=== PATIENT | male | born 1940 | race Caucasian/White ===

== ENCOUNTER 2016-12-18 00:17 | Inpatient (IN) ==
[2016-12-18] MEDS ORDERED: 0.9 % Sodium Chloride 1,000 ML IVC ONE (00:21)
[2016-12-18] MEDS ORDERED: Ondansetron 4 MG/2 ML VIAL IVP ONE (00:21)
[2016-12-18] MEDS ORDERED: *HR* FentaNYL (PF) 100 MCG/2 ML VIAL IVP ONE (00:38)
--- NOTE | 2016-12-18 00:40 | Emergency Department Note ---
Disposition Clinical Impression: Abdominal pain Qualifiers: Abdominal location: generalized Qualified Code(s): R10.84 - Generalized abdominal pain Sepsis Qualifiers: Sepsis type: sepsis due to unspecified organism Qualified Code(s): A41.9 - Sepsis, unspecified organism Disposition: Admitted As Inpatient Condition: Undetermined Time of Disposition: 03:01 Abdominal Pain HPI - General Chief Complaint: ED Abdominal Pain Stated Complaint: nausa/abd pain Time Seen by Provider: 12/18/16 00:20 Source: patient, EMS Mode of arrival: EMS Limitations: no limitations Nursing Notes Reviewed: Yes Vital Signs Reviewed: Yes - History of Present Illness HPI Narrative: 76-year-old male with history of colostomy, ileostomy, PEG tube arrives [facility] emergency department with severe abdominal pain worsening over the course of the past 4 days as well as vomiting what appears to be feculent material according to . The patient states that he does have a history of atrial fibrillation but has not been taking his Xarelto. 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 The patient's surgeon refused to place a stoma due to the fact that the patient is so cachectic. The patient states that he is in a large amount of abdominal pain at this time. Pt Subjective Complaint: abdominal pain Onset (ago): day(s) (4) Consistency: constant, Worsening Pain Severity: severe Pain Scale: 10 Quality: stabbing Radiation: none Migration to: no migration Improves with: nothing Worsens with: nothing Associated symptoms: Reports: nausea, vomiting Treatments prior to arrival: none - Related Data Home Medications Medication Instructions Recorded Confirmed ALPRAZolam [Xanax 0.25 MG Tablet] 0.25 mg GTUBE BID 06/05/16 06/11/16 Albuterol Neb [AccuNeb] 1.25 mg IH Q4H PRN 06/05/16 06/11/16 Amoxicillin/Clavulanate [Augmentin] 875 mg GTUBE BID 06/05/16 06/11/16 Atorvastatin [Lipitor] 40 mg GTUBE HS 06/05/16 06/11/16 Fentanyl [Duragesic] 25 mcg TD Q72H 06/05/16 06/11/16 Fluticasone/Salmeterol [Advair 1 each IH BID 06/05/16 06/11/16 250-50 Diskus] Guaifenesin [Mucinex] 400 mg GTUBE TID 06/05/16 06/11/16 Ipratropium/Albuterol Neb [Duoneb] 3 ml IH Q6HR 06/05/16 06/11/16 Lactose-Reduced Food/Fiber [Jevity 65 ml GTUBE CONT MDD for 16 hours 06/05/16 1.5 Gil Liquid] daily Metoprolol [Lopressor] 25 mg GTUBE DAILY 06/05/16 06/11/16 Oxycodone HCl [OxyCODONE Oral Soln] 5 mg GTUBE Q6H PRN 06/05/16 06/11/16 Oxycodone HCl [Oxycontin] 10 mg GTUBE Q6H 06/05/16 06/11/16 Allergies Allergy/AdvReac Type Severity Reaction Status Date / Time No Known Allergies Allergy Verified 06/05/16 03:46 All systems ED: reviewed and negative except as stated. Constitutional: Reports: weakness. Denies: fever, chills, weight change Cardiovascular: Denies: chest pain, palpitations, dyspnea on exertion, edema, syncope Respiratory: Denies: cough, dyspnea, wheezes, hemoptysis, stridor Gastrointestinal: Reports: abdominal pain, nausea, vomiting, constipation. Denies: diarrhea, hematemesis, melena, hematochezia Musculoskeletal: Denies: back pain, neck pain, arthralgia, myalgia Neurological: Denies: headache, weakness, numbness, paresthesias, confusion, abnormal gait, vertigo Abdominal Pain PMH - Past Medical History Medical history: Reports: arthritis, atrial fibrillation, cancer, CHF, COPD, coronary artery disease, GERD, hyperlipidemia, hypertension, myocardial infarction, other Male Surgical History: Reports: colostomy, other (Ileostomy, PEG tube) Psychiatric history: Reports: anxiety - Social History Smoking status: Current every day smoker Alcohol use: Reports: none Drug use: Reports: none Physical Exam - General Limitations: no limitations General appearance: alert, in distress (Due to pain), cachectic - Head Head exam: atraumatic, normocephalic, normal inspection - Neck Neck exam: Present: normal inspection, full ROM, trachea midline - Chest Chest inspection: Present: normal inspection, symmetric chest wall rise - Respiratory Respiratory exam: Present: normal lung sounds bilaterally - Cardiovascular Cardiovascular exam: Present: regular rate, normal rhythm, normal heart sounds - Abdominal Exam Abdominal exam: Present: soft, tenderness (Diffuse), other (Ileostomy and colostomy with an ileal conduit for urine. PEG tube in place, chronic skin changes associated with radiation therapy. Irritation and mild erythema of PEG tube.). Absent: distention, guarding, rebound, rigidity, Bucio's sign, Rovsing 's sign - Extremities Exam Extremities exam: Present: normal inspection, full ROM. Absent: tenderness, pedal edema Course Vital Signs Temperature 98.5 F 12/18/16 00:21 Pulse Rate 90 12/18/16 00:21 Respiratory Rate 18 12/18/16 00:21 Blood Pressure 99/66 12/18/16 00:21 O2 Sat by Pulse Oximetry 93 12/18/16 00:21 Temperature 98.5 F 12/18/16 00:21 Pulse Rate 109 12/18/16 01:28 Respiratory Rate 18 12/18/16 00:21 Blood Pressure 111/58 12/18/16 01:28 O2 Sat by Pulse Oximetry 93 12/18/16 01:28 Oxygen Delivery Oxygen Delivery Room Air Abdominal Pain - MDM Narrative Medical decision making narrative: Patient's abdominal CT demonstrates no acute findings. The patient has a leukocytosis as well as an elevated lactic acid. He was administered IV fluids as well as IV antibiotics. The patient is resting comfortably at this time. Given the patient's lab work findings in his abdominal pain we will admit the patient to the hospitalist for further care. We will admit the patient to the hospitalist, accepted by Dr. Montano. - Lab Data Lab results reviewed: Yes I reviewed the patient's lab results. Result diagrams: 12/18/16 00:58 12/18/16 00:58 Lab Results 12/18/16 12/18/16 12/18/16 Range/Units 00:58 00:58 00:58 WBC 24.2 H (4.3-11.1) K/mcL RBC 3.38 L (4.19-5.50) M/mcL Hgb 10.9 L (12.9-16.9) g/dL Hct 32.5 L (37.5-50.1) % MCV 96.2 (83.0-100.0) fL MCH 32.2 (28.0-33.3) pg MCHC 33.5 (31.6-35.5) g/dL RDW 14.0 (11.5-14.5) % Plt Count 350 (140-400) K/mcL MPV 12.0 (9.4-12.4) fL Immature Gran % 1.0 (0-4) % Seg Neutrophils % 87.7 % Lymphocytes % 3.9 % Monocytes % 7.2 % Eosinophils % 0.0 % Basophils % 0.2 % Neutrophils # 21.2 H (1.6-8.9) K/mcL Lymphocytes # 0.9 (0.6-4.6) K/mcL Monocytes # 1.7 H (0.0-1.3) K/mcL Eosinophils # 0.0 (0.0-0.6) K/mcL Basophils # 0.1 (0.0-0.2) K/mcL Platelet Estimate Normal (Normal) Hypochromasia Present A (Not Present) Sodium 134 L (136-145) mEq/L Potassium 4.5 (3.5-4.5) mEq/L Chloride 90 L (98-109) mEq/L Carbon Dioxide 29 (19-29) mEq/L BUN 158 H (8-26) mg/dL Creatinine 2.22 H (0.72-1.25) mg/dL Est GFR ( Amer) 35 L (> 60) Est GFR (Non-Af Amer) 29 L (> 60) BUN/Creatinine Ratio 71 H (6-26) Glucose 121 H (70-99) mg/dL Calculated Osmolality 331 H (280-300) Lactic Acid 2.9 H (0.5-2.2) mmol/L Calcium 10.1 (8.6-10.8) mg/dL Total Bilirubin 0.2 (0.2-1.2) mg/dL AST 19 (5-34) Units/L ALT 18 (0-55) Units/L Alkaline Phosphatase 98 (38-126) Units/L Serum Total Protein 7.8 (6.0-8.3) g/dL Albumin 3.5 (3.5-5.0) g/dL Globulin 4.3 H (2.4-3.5) g/dL Albumin/Globulin Ratio 0.8 L (1.1-2.2) Urine Color (Yellow) Urine Clarity (Clear) Urine pH (5.0-8.0) pH Units Ur Specific Keiser (1.010-1.025) Urine Protein (Neg-Trace) mg/dL Urine Glucose (UA) (Normal) mg/dL Urine Ketones (Negative) mg/dL Urine Blood (Negative) Urine Nitrite (Negative) Urine Bilirubin (Negative) Urine Urobilinogen (Normal) mg/dL Ur Leukocyte Esterase (Negative) Urine Microscopic RBC (0-3) per hpf Urine Microscopic WBC (0-3) per hpf Ur Squamous Epith Cells (None-Few) per lpf Urine Bacteria (None-Few) per hpf Hyaline Casts (None-Few) per lpf Ur Culture Indicated? (NO) 12/18/16 Range/Units 01:28 WBC (4.3-11.1) K/mcL RBC (4.19-5.50) M/mcL Hgb (12.9-16.9) g/dL Hct (37.5-50.1) % MCV (83.0-100.0) fL MCH (28.0-33.3) pg MCHC (31.6-35.5) g/dL RDW (11.5-14.5) % Plt Count (140-400) K/mcL MPV (9.4-12.4) fL Immature Gran % (0-4) % Seg Neutrophils % % Lymphocytes % % Monocytes % % Eosinophils % % Basophils % % Neutrophils # (1.6-8.9) K/mcL Lymphocytes # (0.6-4.6) K/mcL Monocytes # (0.0-1.3) K/mcL Eosinophils # (0.0-0.6) K/mcL Basophils # (0.0-0.2) K/mcL Platelet Estimate (Normal) Hypochromasia (Not Present) Sodium (136-145) mEq/L Potassium (3.5-4.5) mEq/L Chloride (98-109) mEq/L Carbon Dioxide (19-29) mEq/L BUN (8-26) mg/dL Creatinine (0.72-1.25) mg/dL Est GFR ( Amer) (> 60) Est GFR (Non-Af Amer) (> 60) BUN/Creatinine Ratio (6-26) Glucose (70-99) mg/dL Calculated Osmolality (280-300) Lactic Acid (0.5-2.2) mmol/L Calcium (8.6-10.8) mg/dL Total Bilirubin (0.2-1.2) mg/dL AST (5-34) Units/L ALT (0-55) Units/L Alkaline Phosphatase (38-126) Units/L Serum Total Protein (6.0-8.3) g/dL Albumin (3.5-5.0) g/dL Globulin (2.4-3.5) g/dL Albumin/Globulin Ratio (1.1-2.2) Urine Color Yellow (Yellow) Urine Clarity Cloudy A (Clear) Urine pH 6.5 (5.0-8.0) pH Units Ur Specific Keiser 1.016 (1.010-1.025) Urine Protein Negative (Neg-Trace) mg/dL Urine Glucose (UA) Normal (Normal) mg/dL Urine Ketones Negative (Negative) mg/dL Urine Blood Large H (Negative) Urine Nitrite Negative (Negative) Urine Bilirubin Negative (Negative) Urine Urobilinogen Normal (Normal) mg/dL Ur Leukocyte Esterase Moderate H (Negative) Urine Microscopic RBC 15-30 H (0-3) per hpf Urine Microscopic WBC 5-15 H (0-3) per hpf Ur Squamous Epith Cells Many H (None-Few) per lpf Urine Bacteria Few (None-Few) per hpf Hyaline Casts None Seen (None-Few) per lpf Ur Culture Indicated? YES A (NO) - Radiology Data Radiology results reviewed: Yes I reviewed the patient's radiology results. - EKG Data EKG attestation: Yes I reviewed and interpreted this EKG. EKG results narrative: Heart rate 93 bpm. WV interval 180 ms. QTC 44 ms. Left axis deviation. Normal sinus rhythm with no ST elevation or ST depression noted. Right bundle branch noted. Critical Care Time Critical Care Time: Yes Total Critical Care Time: 35 Attestation: Critical care performed: Time is exclusive of separately billable procedures. Time includes: direct patient care, patient reassessment, coordination of patient care, interpretation of data (laboratory data, radiology data, and respiratory data), review of patient's medical records, medical consultation and documentation of patient care. Procedures included in critical care time: Procedures excluded from critical care time: Attestation Statement - Attestation Attestation: I, Antonio Sanchez MD, personally evaluated this patient and discussed their management with the resident physician. I reviewed the resident's note and agree with the documented findings, medical decision making, and plan of care. 76-year-old male presents to the emergency department with a complaint of increasing abdominal pain with nausea and vomiting over the past several days. No fever. Decreased drainage from colostomy bag. reported the emesis and smelled like stool. Abdominal pain is generalized. Patient has an ileal conduit. On examination patient is a well-developed thin elderly male in no acute distress but does appear to be in moderate discomfort. He is alert and oriented 3. There is no cyanosis or diaphoresis. Is nontender to palpation. Breath sounds are equal bilaterally with some scattered bilateral rhonchi. Heart regular rate and rhythm. Abdomen soft with decreased bowel sounds. Mild diffuse tenderness. No tympany or distention. Chest x-ray negative. CT of the abdomen and pelvis showed no acute abnormality. Labs reviewed. WBC 24.2 with 87% segs. Creatinine 2.22. The hospitalist, Dr. Montano, was consulted and accepted admission of the patient.
[2016-12-18 01:06] LABS: Basophils # 0.1 K/mcL (0.0-0.2); Basophils % 0.2 %; Hematocrit 32.5 % (37.5-50.1); Hemoglobin 10.9 g/dL (12.9-16.9); Lymphocytes % 3.9 %; Mean Corpuscular HGB Conc 33.5 g/dL (31.6-35.5); Mean Corpuscular Hemoglobin 32.2 pg (28.0-33.3); Mean Corpuscular Volume 96.2 fL (83.0-100.0); Monocytes # 1.7 K/mcL (0.0-1.3); Monocytes % 7.2 %; Neutrophils # 21.2 K/mcL (1.6-8.9); Platelet Count 350 K/mcL (140-400); Red Blood Count 3.38 M/mcL (4.19-5.50); Segmented Neutrophils % 87.7 %
[2016-12-18 01:07] LABS: Lymphocytes # 0.9 K/mcL (0.6-4.6)
[2016-12-18 01:27] LABS: Hypochromasia Present (Not Present); Platelet Estimate Normal (Normal); Potassium 4.5 mEq/L (3.5-4.5)
[2016-12-18 01:28] LABS: Albumin 3.5 g/dL (3.5-5.0); Albumin/Globulin Ratio 0.8 (1.1-2.2); Bilirubin,Total 0.2 mg/dL (0.2-1.2); Calcium 10.1 mg/dL (8.6-10.8); Globulin 4.3 g/dL (2.4-3.5); Total Protein 7.8 g/dL (6.0-8.3)
[2016-12-18 01:34] LABS: Bilirubin,Urine Negative (Negative); Blood,Urine Large (Negative); Clarity,Urine Cloudy (Clear); Color,Urine Yellow (Yellow); Glucose,Urine (UA) Normal (Normal); Ketones,Urine Negative (Negative); Leukocyte Esterase,Urine Moderate (Negative); Nitrite,Urine Negative (Negative); PH,Urine 6.5 pH Units (5.0-8.0); Protein,Urine Negative (Neg-Trace); Specific Gravity,Urine 1.016 (1.010-1.025); Urobilinogen,Urine Normal (Normal)
[2016-12-18 01:36] LABS: Bacteria,Urine Few per hpf (None-Few); Hyaline Casts,Urine None Seen per lpf (None-Few); RBC,Urine 15-30 per hpf (0-3); Squamous Epithelial Cell,Urine Many per lpf (None-Few)
[2016-12-18] MEDS ORDERED: Piperacillin/Tazobactam 3.375 GM in D5% in Water (Mini-Bag+) 100 ML IVPB ONE (02:03)
[2016-12-18] MEDS ORDERED: Vancomycin 1,000 MG in D5% in Water 250 ML IVPB ONE (02:03)
[2016-12-18] MEDS ORDERED: *HR* OxyCODONE Oral Soln 5 MG/5 ML UD.LIQ GTUBE PRN (04:07)
[2016-12-18] MEDS ORDERED: Acetaminophen 325 MG TABLET PO PRN (04:15)
[2016-12-18] MEDS ORDERED: 0.9 % Sodium Chloride 1,000 ML IVC SCH (04:15)
[2016-12-18] MEDS ORDERED: Naloxone 0.4 MG/ML INJ IVP PRN (04:15)
[2016-12-18 04:34] LABS: Magnesium 2.1 mg/dL (1.6-2.6)
[2016-12-18 04:36] LABS: INR 1.9; Prothrombin Time 20.7 Seconds (9.4-12.1)
[2016-12-18] MEDS: *HR* Morphine 2 MG/ML SYRINGE IVP PRN ×3 (04:47→16:35)
[2016-12-18] MEDS: Ipratropium/Albuterol Neb 3 ML IH SCH ×4 (04:56→16:00)
--- NOTE | 2016-12-18 04:57 | Internal Med History&Physical ---
Date of Encounter: 12/18/16 Time of Encounter: 04:30 Assessment and Plan (1) Sepsis Current visit: No Status: Acute Sepsis present on admission - likely secondary to UTI and possible infection at PEG tube site with Acute Kidney Injury Patient also has severe skin excoriation around the colostomy and ileostomy sites Continue IV fluids, empiric IV Zosyn, IV Vancomycin WBC - 24.2 Lactic acid - 2.9 Cultures - pending Chest x-ray - negative CT abdomen and pelvis - no acute findings, no obstruction UA - moderate leukocyte esterase Wound care consult Cardiac telemetry, repeat labs in a.m., monitor closely Qualifiers: Sepsis type: sepsis due to unspecified organism Qualified Code(s): A41.9 - Sepsis, unspecified organism (2) UTI (urinary tract infection) Current visit: No Status: Acute Plan as above Qualifiers: Urinary tract infection type: site unspecified Hematuria presence: without hematuria Qualified Code(s): N39.0 - Urinary tract infection, site not specified (3) Acute kidney injury Current visit: No Status: Acute Acute kidney injury likely secondary to sepsis and volume depletion Continue IV fluids, labs in a.m. Nephrology consult if renal function worsens (4) Abdominal pain Current visit: Yes Status: Acute Acute abdominal pain with nausea and vomiting - unclear etiology, possibly due to skin excoriation and retracted colostomy IV Morphine as needed for pain CT abdomen - no acute findings, no obstruction Gen. surgery consult Qualifiers: Abdominal location: generalized Qualified Code(s): R10.84 - Generalized abdominal pain (5) Skin breakdown Current visit: No Status: Chronic Severe skin excoriation around colostomy and ileostomy sites - probably contributing to abdominal pain and discomfort Wound Care consult (6) Failure to thrive Current visit: No Status: Chronic Patient is cachectic and is chronically ill-appearing - poor by mouth intake Qualifiers: Failure to thrive age range: in adult Qualified Code(s): R62.7 - Adult failure to thrive (7) DVT prophylaxis Current visit: No Status: Acute Continue heparin subcutaneous Internal Medicine - H&P: HPI Chief complaint: Abdominal pain Admitted From: Emergency Dept Plans for Post Hospital Care: Home History of present illness: Mr. Urias is a 76 year old male with past medical history of arthritis, atrial fibrillation, hyperlipidemia, hypertension, COPD, CHF, coronary artery disease, anxiety and history of cancer. Patient presents to the ED with complaints of abdominal pain and vomiting. Examined in the room. Patient is awake and alert. Not in any distress. Able to provide all history. No family members at bedside. Patient states abdominal pain started about 4 days ago and is gradually worsening. Patient also complains of several episodes of vomiting and nausea. Aggravated with food intake. No alleviating factors. He describes the pain as sharp and almost constant. States the pain is generalized. Also mention of that output in his colostomy bag has not changed. Rates the pain 7 out of 10. Patient has a diverting colostomy and a diverting ileostomy due to history of prostate cancer. He denies chest pain or shortness of breath or palpitations. Denies fever or cough or headache. Patient has no other acute complaints. Initial workup in the ED is significant for elevated white count and elevated lactic acid. He should also has acute kidney injury. Chest x-ray and CT of the abdomen and pelvis were negative. Patient is being admitted for sepsis. He will need IV antibiotics and IV fluids. Patient has been explained about his condition and plan of care. He understood and agreed. CODE STATUS full code. Past Med Surg Social Fam HX - Past Medical History Medical history: arthritis, atrial fibrillation, cancer, CHF, COPD, coronary artery disease, GERD, hyperlipidemia, hypertension, myocardial infarction, other Psychiatric history: anxiety - Past Surgical History Surgical History: colostomy, orthopedic, other - Social History Smoking Status: Current every day smoker Packs per day: 1 Smokeless Tobacco Status: No Alcohol use: none Drug use: none - Family History Mother Living Status: Hx Family Respiratory Disorders: Yes (COPD) Internal Medicine - H&P: Meds ALPRAZolam [Xanax 0.25 MG Tablet] 0.25 mg GTUBE BID 06/05/16 [History] Albuterol Neb [AccuNeb] 1.25 mg IH Q4H PRN 06/05/16 [History] Amoxicillin/Clavulanate [Augmentin] 875 mg GTUBE BID 06/05/16 [History] Atorvastatin [Lipitor] 40 mg GTUBE HS 06/05/16 [History] Fentanyl [Duragesic] 25 mcg TD Q72H 06/05/16 [History] Fluticasone/Salmeterol [Advair 250-50 Diskus] 1 each IH BID 06/05/16 [History] Guaifenesin [Mucinex] 400 mg GTUBE TID 06/05/16 [History] Ipratropium/Albuterol Neb [Duoneb] 3 ml IH Q6HR 06/05/16 [History] Lactose-Reduced Food/Fiber [Jevity 1.5 Gil Liquid] 65 ml GTUBE CONT MDD for 16 hours daily 06/05/16 [History] Metoprolol [Lopressor] 25 mg GTUBE DAILY 06/05/16 [History] Oxycodone HCl [OxyCODONE Oral Soln] 5 mg GTUBE Q6H PRN 06/05/16 [History] Oxycodone HCl [Oxycontin] 10 mg GTUBE Q6H 06/05/16 [History] 3 Allergy/AdvReac Type Severity Reaction Status Date / Time No Known Allergies Allergy Verified 06/05/16 03:46 All Systems PM: A 10-system review of systems was performed and is negative for pertinent findings except as documented above in the HPI. - Constitutional Constitutional: fatigue, weakness, no fever(s) - EENT Eyes: no blurry vision - Cardiovascular Cardiovascular ROS IM: no chest pain, no diaphoresis, no dyspnea, no dyspnea on exertion, no edema, no lightheadedness, no orthopnea, no palpitations, no syncope - Respiratory Respiratory: no cough, no dyspnea, no hemoptysis, no dyspnea on exertion, no wheezing, no chest congestion - Gastrointestinal Gastrointestinal: abdominal pain, bloating, cramping, heartburn, nausea, vomiting, no diarrhea, no hematemesis, no hematochezia, no melena - Genitourinary Genitourinary ROS male: no dysuria - Neurological Neurological ROS: no abnormal gait, no confusion, no convulsions, no dizziness, no loss of vision, no numbness, no tingling - Constitutional Vitals: Temp Pulse Resp BP Pulse Ox 97.6 F 84 18 111/67 94 12/18/16 04:13 12/18/16 04:13 12/18/16 04:13 12/18/16 04:13 12/18/16 04:13 General appearance: Present: cachectic, A&O X 3, no acute distress, loss of weight, answers questions appropriately Exam: Generalized weakness, chronically ill-appearing, discomfort due to pain - Head Head exam: Present: atraumatic - Eye Eye exam: Present: EOMI - ENT ENT exam: Present: mucous membranes dry - Respiratory Respiratory exam: Present: CTAB. Absent: accessory muscle use, chest wall tenderness, rales, rhonchi, wheezes, tachypnea - Cardiovascular Cardiovascular exam: Present: RRR, +S1, +S2 - GI/Abdominal GI/Abdominal exam: Present: soft, tenderness (Mild generalized tenderness), no peritoneal signs. Absent: distended, firm, guarding Additional comments: Patient has a right-sided colostomy bag and a left-sided diverting ileostomy with clear urine draining. Patient also has a PEG tube in place. Site around PEG tube looks infected and the skin surrounding the ileostomy and colostomy is excoriated. - Extremities Exam Extremities exam: Present: radial pulses palpable and symmetrical. Absent: calf tenderness, cyanotic, pedal edema - Neurological Exam Neurological exam: Present: alert, oriented X3, no focal deficits. Absent: facial droop, speech deficit Internal Med - H&P Results - Labs CBC & Chem 7: 12/18/16 00:58 12/18/16 00:58
[2016-12-18] MEDS: Ondansetron 4 MG/2 ML VIAL IVP PRN ×2 (05:34→14:00)
[2016-12-18] MEDS ORDERED: Vancomycin 1,000 MG in D5% in Water 250 ML IVPB SCH (06:00)
[2016-12-18] MEDS ORDERED: *HR* Heparin 5,000 UNIT/ML VIAL SQ SCH (06:00)
--- NOTE | 2016-12-18 06:48 | General Surgery Consult Note ---
Date of Encounter: 12/18/16 Past Med Surg Social Fam HX - Past Medical History Medical history: arthritis, atrial fibrillation, cancer, CHF, COPD, coronary artery disease, GERD, hyperlipidemia, hypertension, myocardial infarction, other Psychiatric history: anxiety - Past Surgical History Surgical History: colostomy, orthopedic, other - Social History Smoking Status: Current every day smoker Packs per day: 1 Smokeless Tobacco Status: No Alcohol use: none Drug use: none - Family History Mother Living Status: Hx Family Respiratory Disorders: Yes (COPD) Medications and Allergies ALPRAZolam [Xanax 0.25 MG Tablet] 0.25 mg GTUBE BID 06/05/16 [History] Albuterol Neb [AccuNeb] 1.25 mg IH Q4H PRN 06/05/16 [History] Amoxicillin/Clavulanate [Augmentin] 875 mg GTUBE BID 06/05/16 [History] Atorvastatin [Lipitor] 40 mg GTUBE HS 06/05/16 [History] Fentanyl [Duragesic] 25 mcg TD Q72H 06/05/16 [History] Fluticasone/Salmeterol [Advair 250-50 Diskus] 1 each IH BID 06/05/16 [History] Guaifenesin [Mucinex] 400 mg GTUBE TID 06/05/16 [History] Ipratropium/Albuterol Neb [Duoneb] 3 ml IH Q6HR 06/05/16 [History] Lactose-Reduced Food/Fiber [Jevity 1.5 Gil Liquid] 65 ml GTUBE CONT MDD for 16 hours daily 06/05/16 [History] Metoprolol [Lopressor] 25 mg GTUBE DAILY 06/05/16 [History] Oxycodone HCl [OxyCODONE Oral Soln] 5 mg GTUBE Q6H PRN 06/05/16 [History] Oxycodone HCl [Oxycontin] 10 mg GTUBE Q6H 06/05/16 [History] 3 Allergy/AdvReac Type Severity Reaction Status Date / Time No Known Allergies Allergy Verified 06/05/16 03:46 Review of Systems All systems PM: A 10-system review of systems was performed and is negative for pertinent findings except as documented above in the HPI. General Surgery Exam Initial Vital Signs Temp Pulse Resp BP Pulse Ox 98.5 F 90 18 99/66 93 12/18/16 00:21 12/18/16 00:21 12/18/16 00:21 12/18/16 00:21 12/18/16 00:21 Exam Initial Vital Signs Temp Pulse Resp BP Pulse Ox 98.5 F 90 18 99/66 93 12/18/16 00:21 12/18/16 00:21 12/18/16 00:21 12/18/16 00:21 12/18/16 00:21 Results - Labs 12/18/16 00:58 12/18/16 00:58 Abnormal lab results WBC 24.2 K/mcL (4.3-11.1) H 12/18/16 00:58 RBC 3.38 M/mcL (4.19-5.50) L 12/18/16 00:58 Hgb 10.9 g/dL (12.9-16.9) L 12/18/16 00:58 Hct 32.5 % (37.5-50.1) L 12/18/16 00:58 Neutrophils # 21.2 K/mcL (1.6-8.9) H 12/18/16 00:58 Monocytes # 1.7 K/mcL (0.0-1.3) H 12/18/16 00:58 Hypochromasia Present (Not Present) A 12/18/16 00:58 PT 20.7 Seconds (9.4-12.1) H 12/18/16 01:00 Sodium 134 mEq/L (136-145) L 12/18/16 00:58 Chloride 90 mEq/L (98-109) L 12/18/16 00:58 BUN 158 mg/dL (8-26) H 12/18/16 00:58 Creatinine 2.22 mg/dL (0.72-1.25) H 12/18/16 00:58 Est GFR ( Amer) 35 (> 60) L 12/18/16 00:58 Est GFR (Non-Af Amer) 29 (> 60) L 12/18/16 00:58 BUN/Creatinine Ratio 71 (6-26) H 12/18/16 00:58 Glucose 121 mg/dL (70-99) H 12/18/16 00:58 Calculated Osmolality 331 (280-300) H 12/18/16 00:58 Lactic Acid 2.9 mmol/L (0.5-2.2) H 12/18/16 00:58 Globulin 4.3 g/dL (2.4-3.5) H 12/18/16 00:58 Albumin/Globulin Ratio 0.8 (1.1-2.2) L 12/18/16 00:58 Urine Clarity Cloudy (Clear) A 12/18/16 01:28 Urine Blood Large (Negative) H 12/18/16 01:28 Ur Leukocyte Esterase Moderate (Negative) H 12/18/16 01:28 Urine Microscopic RBC 15-30 per hpf (0-3) H 12/18/16 01:28 Urine Microscopic WBC 5-15 per hpf (0-3) H 12/18/16 01:28 Ur Squamous Epith Cells Many per lpf (None-Few) H 12/18/16 01:28 Ur Culture Indicated? YES (NO) A 12/18/16 01:28 All other labs normal. Consult Discharge Plan - Plan Referrals: Saray Heller MD [Primary Care Provider] -
[2016-12-18] MEDS ORDERED: Famotidine 20 MG/2 ML VIAL IVP SCH ×2 (09:00)
[2016-12-18] MEDS ORDERED: Budesonide/Formoterol 80/4.5 MDI IH SCH (10:00)
[2016-12-18] MEDS: GuaiFENesin Liq 200 MG/10 ML UDC GTUBE SCH ×2 (10:12→16:35)
--- NOTE | 2016-12-18 10:58 | Internal Med Progress Note ---
Date of Encounter: 12/18/16 Time of Encounter: 10:55 - Assessment and plan (1) Sepsis Current Visit: Yes Status: Acute Assessment and plan: Sepsis likely secondary to acute cellulitis surrounding PEG tube and possible UTI Continue IV vancomycin, switched Zosyn for cefepime, to decrease the chances of progression of acute renal failure, consider adding gentamicin if not improving as the patient grew VRE in the past being sensitive only to streptomycin and gentamicin Obtain culture from the surrounding area of the PEG tube The patient was given the option to be transferred to [facility] where he has all of his surgeons and infectious diseases specialists but prefers to stay here at the moment Continue IV fluids, wound care management Qualifiers: Sepsis type: sepsis due to unspecified organism Qualified Code(s): A41.9 - Sepsis, unspecified organism (2) Acute kidney injury Current Visit: No Status: Acute Assessment and plan: Likely secondary to sepsis and dehydration (3) Urinary tract infection Current Visit: No Status: Acute Assessment and plan: Culture pending Qualifiers: Urinary tract infection type: site unspecified Hematuria presence: without hematuria Qualified Code(s): N39.0 - Urinary tract infection, site not specified (4) Wound cellulitis Current Visit: No Status: Acute (5) Colostomy, retracted Current Visit: No Status: Acute Assessment and plan: Colostomy leaking - Subjective Interval history: Not for billing purposes - Constitutional Vitals: Temp Pulse Resp BP Pulse Ox 96.8 F L 83 14 93/55 97 12/18/16 07:38 12/18/16 07:38 12/18/16 07:38 12/18/16 07:38 12/18/16 07:38 General appearance: Present: cachectic, A&O X 3, no acute distress, loss of weight, answers questions appropriately - Head Head exam: Present: atraumatic, normocephalic - Eye Eye exam: Present: PERRL, conjuntiva pink, sclera anicteric Pupils: Present: PERRL - Neck Neck exam general surgery: Present: supple, trachea midline. Absent: lymphadenopathy - Respiratory Respiratory exam: Present: CTAB. Absent: accessory muscle use, rales, rhonchi, wheezes - Cardiovascular Cardiovascular exam: Present: RRR, +S1, +S2. Absent: diastolic murmur, gallop, rubs, systolic murmur - GI/Abdominal GI/Abdominal exam: Present: normal bowel sounds, soft, no peritoneal signs. Absent: distended, tenderness Additional comments: PEG tube in the left upper quadrant surrounded by purulent material Urostomy bag in place Colostomy leaking fecal material - Extremities Exam Extremities exam: Present: warm, radial pulses palpable and symmetrical. Absent : calf tenderness, cyanotic, pedal edema - Neurological Exam Neurological exam: Present: CN II-XII intact, oriented X3, no focal deficits. Absent: pronater drift, facial droop, speech deficit - Skin Skin exam: Present: dry, intact Internal Medicine: Result - Labs CBC & Chem 7: 12/18/16 00:58 12/18/16 00:58 - ABG Interpretation ABG results: PT/INR, D-dimer PT 20.7 Seconds (9.4-12.1) H 12/18/16 01:00 Consult Discharge Plan - Plan Referrals: Saray Heller MD [Primary Care Provider] -
[2016-12-18] MEDS ORDERED: Cefepime HCl 1,000 MG in D5% in Water (Mini-Bag+) 100 ML IVPB SCH (11:00)
--- NOTE | 2016-12-18 12:28 | General Surgery Consult Note ---
Date of Encounter: 12/18/16 Time of Encounter: 12:00 Assessment and Plan (1) Leukocytosis Current Visit: Yes Status: Acute patient with elevated wbc, on Abx per hospitalist, source does not appear to be in his abdomen peg site does not appear infected although is excorriated around retracted colostomy site as far as I can see there are no open wounds present there patient stated he had a "fistula" fixed with a "stapler' down his throat within the last week or two ordered records from [facility] ordered stat CT neck and chest to evaluate potential source of leukocystosis [facility] Qualifiers: Leukocytosis type: unspecified Qualified Code(s): D72.829 - Elevated white blood cell count, unspecified (2) Attention to urostomy Current Visit: Yes Status: Chronic urostomy care - per patients instructions (3) PEG (percutaneous endoscopic gastrostomy) status Current Visit: Yes Status: Chronic from my standpoint peg site is not infected and ok to use, although patient refused (4) Colostomy, retracted Current Visit: No Status: Chronic colostomy care per patient instructions History of Present Illness Consult date: 12/18/16 History of present illness: Patient is 76 yo male with complex medical history. He states he had prostate cancer and had "seeds" placed that migrated from the prostate to throughout his abdomen and "burned everything up" He has a left urostomy (?) and right sided colostomy due to this. His colostomy has no stoma at the surface and his skin is a little red and tender around the colostomy opening. He states his bowel are normally runny and does have diarrhea once in a while. He uses nonsting skin barrier to his kim colostomy skin. 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 He is a poor historian. He has yellow drainage from around the peg site, states is tender at abdominal wall around peg site and refuses to allow anyone to use the peg due it causing his bowels to move. Past Med Surg Social Fam HX - Past Medical History Source: patient Medical history: arthritis, atrial fibrillation, cancer, CHF, COPD, coronary artery disease, GERD, hyperlipidemia, hypertension, myocardial infarction, other (unknown recent procedure up at [facility] for TEF) Psychiatric history: anxiety - Past Surgical History Surgical History: colostomy, orthopedic, other, other (peg, colostomy, urostomy , unknown TEF repair procudure at [facility] this past week) - Social History Smoking Status: Current every day smoker Packs per day: 1 Smokeless Tobacco Status: No Alcohol use: none Drug use: none - Family History Mother Living Status: Hx Family Respiratory Disorders: Yes (COPD) Medications and Allergies ALPRAZolam [Xanax 0.25 MG Tablet] 0.25 mg GTUBE BID 06/05/16 [History] Atorvastatin [Lipitor] 40 mg GTUBE HS 06/05/16 [History] Fluticasone/Salmeterol [Advair 250-50 Diskus] 1 each IH BID 06/05/16 [History] Lactose-Reduced Food/Fiber [Jevity 1.5 Gil Liquid] 65 ml GTUBE CONT MDD for 16 hours daily 06/05/16 [History] Oxycodone HCl [OxyCODONE Oral Soln] 10 mg GTUBE Q6H PRN 06/05/16 [History] Aspirin 81 mg PO DAILY 12/18/16 [History] Furosemide [Lasix] 20 mg GTUBE DAILY 12/18/16 [History] Gabapentin [Gabapentin] 6 ml GTUBE TID 12/18/16 [History] 3 Allergy/AdvReac Type Severity Reaction Status Date / Time No Known Allergies Allergy Verified 12/18/16 11:57 Review of Systems All systems PM: reviewed and no additional remarkable complaints except as stated All systems PM: A 10-system review of systems was performed and is negative for pertinent findings except as documented above in the HPI. General Surgery Exam Initial Vital Signs Temp Pulse Resp BP Pulse Ox 98.5 F 90 18 99/66 93 12/18/16 00:21 12/18/16 00:21 12/18/16 00:21 12/18/16 00:21 12/18/16 00:21 - General physical appearance no distress, no pain, cachectic, chronically ill - Eyes PERRL, normal ocular movement - ENT normal mucosa, normocephalic - Neck trachea midline - Respiratory normal expansion, clear to auscultation - Cardiovascular Cardiovascular exam: Present: RRR - Abdomen Abdomen general surgery: Present: soft, non tender. Absent: distended - Genitourinary Present: other (left lower abdomen urostomy(?) no obvious stoma at skin level is just opening in skin with urine draining from site) - Rectum Rectum: Present: other (right sided lower quadrant opening in skin (appears strictured) with no stoma at skin level patient states is his colostomy) - Integumentary Integumentary general surgery: Present: other (excorriation around colostomy opening, peg site with no surrounding erythema, pt states is tender to palpation ) - Neurologic Present: CN 2-12 grossly intact, normal sensation - Musculoskeletal Present: normal posture - Psychiatric Psychiatric general surgery: Present: A&Ox3, speech is normal Exam Initial Vital Signs Temp Pulse Resp BP Pulse Ox 98.5 F 90 18 99/66 93 12/18/16 00:21 12/18/16 00:21 12/18/16 00:21 12/18/16 00:21 12/18/16 00:21 Results - Labs 12/18/16 00:58 12/18/16 00:58 Abnormal lab results WBC 24.2 K/mcL (4.3-11.1) H 12/18/16 00:58 RBC 3.38 M/mcL (4.19-5.50) L 12/18/16 00:58 Hgb 10.9 g/dL (12.9-16.9) L 12/18/16 00:58 Hct 32.5 % (37.5-50.1) L 12/18/16 00:58 Neutrophils # 21.2 K/mcL (1.6-8.9) H 12/18/16 00:58 Monocytes # 1.7 K/mcL (0.0-1.3) H 12/18/16 00:58 Hypochromasia Present (Not Present) A 12/18/16 00:58 PT 20.7 Seconds (9.4-12.1) H 12/18/16 01:00 Sodium 134 mEq/L (136-145) L 12/18/16 00:58 Chloride 90 mEq/L (98-109) L 12/18/16 00:58 BUN 158 mg/dL (8-26) H 12/18/16 00:58 Creatinine 2.22 mg/dL (0.72-1.25) H 12/18/16 00:58 Est GFR ( Amer) 35 (> 60) L 12/18/16 00:58 Est GFR (Non-Af Amer) 29 (> 60) L 12/18/16 00:58 BUN/Creatinine Ratio 71 (6-26) H 12/18/16 00:58 Glucose 121 mg/dL (70-99) H 12/18/16 00:58 Calculated Osmolality 331 (280-300) H 12/18/16 00:58 Lactic Acid 2.9 mmol/L (0.5-2.2) H 12/18/16 00:58 Globulin 4.3 g/dL (2.4-3.5) H 12/18/16 00:58 Albumin/Globulin Ratio 0.8 (1.1-2.2) L 12/18/16 00:58 Urine Clarity Cloudy (Clear) A 12/18/16 01:28 Urine Blood Large (Negative) H 12/18/16 01:28 Ur Leukocyte Esterase Moderate (Negative) H 12/18/16 01:28 Urine Microscopic RBC 15-30 per hpf (0-3) H 12/18/16 01:28 Urine Microscopic WBC 5-15 per hpf (0-3) H 12/18/16 01:28 Ur Squamous Epith Cells Many per lpf (None-Few) H 12/18/16 01:28 Ur Culture Indicated? YES (NO) A 12/18/16 01:28 All other labs normal. - Imaging CT scan - abdomen: report reviewed, image reviewed CT scan - pelvis: report reviewed, image reviewed Consult Discharge Plan - Plan Referrals: Saray Heller MD [Primary Care Provider] -
[2016-12-18 12:41] VITALS: BP 99/60
[2016-12-18] MEDS ORDERED: Piperacillin/Tazobactam 3.375 GM in D5% in Water (Mini-Bag+) 100 ML IVPB SCH (14:00)
--- NOTE | 2016-12-18 14:34 | Discharge Summary ---
Date of Encounter: 12/18/16 Time of Encounter: 14:31 - Discharge Diagnosis (1) Sepsis Priority: Primary Status: Acute Comments: Sepsis likely secondary to acute cellulitis surrounding PEG/colostomy tube and possible UTI Qualifiers: Sepsis type: sepsis due to unspecified organism Qualified Code(s): A41.9 - Sepsis, unspecified organism (2) Acute kidney injury Priority: Primary Status: Acute Comments: Likely related to sepsis and dehydration (3) Urinary tract infection Priority: Primary Status: Acute Qualifiers: Urinary tract infection type: site unspecified Hematuria presence: without hematuria Qualified Code(s): N39.0 - Urinary tract infection, site not specified (4) Wound cellulitis Priority: Primary Status: Acute (5) Colostomy, retracted Priority: Secondary Status: Chronic - Discharge Medications Home Medications: ALPRAZolam [Xanax 0.25 MG Tablet] 0.25 mg GTUBE BID 06/05/16 [History] Atorvastatin [Lipitor] 40 mg GTUBE HS 06/05/16 [History] Fluticasone/Salmeterol [Advair 250-50 Diskus] 1 each IH BID 06/05/16 [History] Lactose-Reduced Food/Fiber [Jevity 1.5 Gil Liquid] 65 ml GTUBE CONT MDD for 16 hours daily 06/05/16 [History] Oxycodone HCl [OxyCODONE Oral Soln] 10 mg GTUBE Q6H PRN 06/05/16 [History] Aspirin 81 mg PO DAILY 12/18/16 [History] Furosemide [Lasix] 20 mg GTUBE DAILY 12/18/16 [History] Gabapentin 6 ml GTUBE TID 12/18/16 [History] Allergies/Adverse Reactions: 3 Allergy/AdvReac Type Severity Reaction Status Date / Time No Known Allergies Allergy Verified 12/18/16 11:57 Procedures/tests Complete & Pending: Procedures Performed prior 72 hours Category Date Time Status CT chest wo con [CT] Stat Cat Scan 12/18/16 12:[address] soft tissue neck wo con [CT] Stat Cat Scan 12/18/16 12:33 Ordered Date of admission: 12/18/16 04:15 Primary care physician: Saray Heller, Consults: 12/18/16 04:41 Consult to Nutrition [CONS] Routine Comment: tube feed, cachetic Consulting Provider: NUTRITION Reason for Dietary Consult: MST Score Consult to Forming Department End Finder [CONS] Routine Reason for SW Consult: discharge planning, no home health, complicated illnesses. 12/18/16 05:54 Consult to Surgery [CONS] Routine Consulting Provider: Caron Donovan Surgical Reason for Consult: abdominal pain, vomiting, h/o ileostomy Call Completed: No - Patient Status Disposition: Transfer Critical Access Hosp Condition: Undetermined Overall status at discharge: patient is not back to baseline - Discharge Instructions Follow Up With: Saray Heller MD [Primary Care Provider] - Additional Instructions: May continue vancomycin and cefepime - Diet and Activity Diet: other (PEG tube feeds) Hospital course: Mr. Urias is a 76 year old male with past medical history of arthritis, atrial fibrillation not on anticoagulation, hyperlipidemia, hypertension, COPD not oxygen dependent, diastolic CHF, coronary artery disease, anxiety and history of prostate cancer, multiple abdominal surgeries due to migration of radioactive seeds that he intended to treat his prostate cancer. Patient presented to the ED with complaints of abdominal pain and vomiting. Patient stated that the abdominal pain started about 4 days ago and is gradually worsening. Also complained of several episodes of vomiting and nausea. Aggravated with food intake. No alleviating factors. He described the pain as sharp and almost constant. Stated the pain was generalized. Also mentioned that the output in his colostomy bag has not changed. Rated the pain 7 out of 10. Patient has a diverting colostomy and a diverting ileostomy due to history of prostate cancer. Initial workup in the ED is significant for elevated white count and elevated lactic acid. He should also has acute kidney injury. Chest x-ray and CT of the abdomen and pelvis were negative. Patient is being admitted for sepsis. He will need IV antibiotics and IV fluids. WBC - 24.2, Lactic acid - 2.9, Chest x-ray - negative. CT abdomen and pelvis - no acute findings, no obstruction UA - moderate leukocyte esterase and positive for possible infection, he has history of UTIs with pansensitive Klebsiella and Escherichia coli but also VRE sensitive only to streptomycin and gentamicin. Was started on IV vancomycin, switched Zosyn for cefepime, to decrease the chances of progression of acute renal failure, consider adding gentamicin if not improving as the patient grew VRE in the past being sensitive only to streptomycin and gentamicin Obtained culture from the surrounding area of the PEG tube. Was evaluated by the surgery service, CT scan of the neck was ordered as the patient had a recent procedure to perform a repair of a tracheoesophageal fistula and the report is pending. Prefers to be transferred to [facility] at this point. Time spent discussing smoking cessation with patient: 3 to 10 minutes - Time Spent with Patient Total time spent providing and/or coordinating discharge services: Greater than 30 minutes (40 min) - Constitutional Vitals: Temp Pulse Resp BP Pulse Ox 98.2 F 87 18 99/60 98 12/18/16 12:36 12/18/16 12:36 12/18/16 12:36 12/18/16 12:36 12/18/16 12:36 General appearance: Present: cachectic, A&O X 3, no acute distress, loss of weight, answers questions appropriately Exam: Head Head exam: Present: atraumatic, normocephalic - Eye Eye exam: Present: PERRL, conjuntiva pink, sclera anicteric Pupils: Present: PERRL - Neck Neck exam general surgery: Present: supple, trachea midline. Absent: lymphadenopathy - Respiratory Respiratory exam: Present: CTAB. Absent: accessory muscle use, rales, rhonchi, wheezes - Cardiovascular Cardiovascular exam: Present: RRR, +S1, +S2. Absent: diastolic murmur, gallop, rubs, systolic murmur - GI/Abdominal GI/Abdominal exam: Present: normal bowel sounds, soft, no peritoneal signs. Absent: distended, tenderness Additional comments: PEG tube in the left upper quadrant surrounded by purulent material Urostomy bag in place Colostomy leaking fecal material - Extremities Exam Extremities exam: Present: warm, radial pulses palpable and symmetrical. Absent : calf tenderness, cyanotic, pedal edema - Neurological Exam Neurological exam: Present: CN II-XII intact, oriented X3, no focal deficits. Absent: pronater drift, facial droop, speech deficit - Skin Skin exam: Present: dry, intact
[2016-12-18] MEDS ORDERED: Aminoglycoside Consult 1 EACH MC ONE (18:44)
[2016-12-19] MEDS ORDERED: Vancomycin 750 MG in D5% in Water 250 ML IVPB SCH (06:00)
--- NOTE | 2016-12-19 18:02 | Electrocardiograph Report ---
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
== END 2016-12-18 18:45 | disposition critical access hospital (66) | DRG 872 ==
LOC: 2ANU 00:17 → EMEROO 00:17 → 2ANU 03:55 → SUATTDRO 04:15
PROVIDERS: ADMIT Family Medicine; ATTEND Internal Medicine